=== PATIENT | male | born 1995 | race African-American/Black ===

== ENCOUNTER 2023-01-27 01:33 | Emergency (ER) | payer MEDICAID ==
[~2023-01-27] VITALS: Ht 177.8 cm; Wt 100.0 kg
[2023-01-27] MEDS ORDERED: ONDANSETRON 4MG ODT PO STA (02:35)
[2023-01-27] MEDS ORDERED: KETOROLAC 30MG/ML VIAL IM STA (02:35)
[2023-01-27 03:00] VITALS: BP 142/82
== END 2023-01-27 05:20 | disposition home or self-care (01) ==
LOC: ER 01:33
DX: M79.605 Pain in left leg (principal); M79.604 Pain in right leg; R51.9 Headache, unspecified; Z86.59 Personal history of other mental and behavioral disorders; V03.99XA Pedestrian with other conveyance injured in collision with car, pick-up truck or van, unspecified whether traffic or nontraffic accident, initial encounter; Y93.89 Activity, other specified; Y92.89 Other specified places as the place of occurrence of the external cause; Y99.8 Other external cause status
CPT/HCPCS: 70450; 96372; 99285; J1885; Q0162